=== PATIENT | male | born 1995 | race Caucasian/White ===

== ENCOUNTER 2021-10-09 09:53 | Emergency (ER) | payer OTHER ==
[~2021-10-09] VITALS: Ht 175.3 cm; Wt 77.3 kg
[2021-10-09 09:58] VITALS: BP 123/66
[2021-10-09] MEDS ORDERED: IBUP-1984 PO (14:05)
== END 2021-10-09 14:34 | disposition home or self-care (01) ==
LOC: ER 09:54
DX: S70.12XA Contusion of left thigh, initial encounter (principal); W22.8XXA Striking against or struck by other objects, initial encounter; Y93.89 Activity, other specified; Y92.89 Other specified places as the place of occurrence of the external cause; Y99.8 Other external cause status
CPT/HCPCS: 73564; 99283